=== PATIENT | female | born 1980 | race Caucasian/White ===

== ENCOUNTER 2017-05-22 12:25 | Outpatient (CLI) | payer BC ==
[~2017-05-22] VITALS: Ht 157.5 cm; Wt 68.1 kg
[2017-05-22 13:29] LABS: ADD UMIC YES; UR ASCORBIC ACID 20 mg/dL (NEGATIVE); UR BILIRUBIN (Dip) NEGATIVE (NEGATIVE); UR BLOOD (Dip) NEGATIVE (NEGATIVE); UR CLARITY SLIGHTLY CLOUDY (CLEAR); UR COLOR YELLOW (YELLOW); UR GLUCOSE (Dip) NEGATIVE (NEGATIVE); UR KETONES (Dip) NEGATIVE (NEGATIVE); UR LEUKOCYTE ESTERASE (Dip) 2+ Leu/ul (NEGATIVE); UR MUCUS FEW /HPF (NONE SEEN); UR NITRITE (Dip) NEGATIVE (NEGATIVE); UR RBC 1 /HPF (0-5); UR SPECIFIC GRAVITY (Dip) 1.023 (1.003-1.030); UR SQUAMOUS EPITHELIAL CELL FEW /HPF (FEW); UR TOTAL PROTEIN (Dip) NEGATIVE (NEGATIVE); UR UROBILINOGEN (Dip) NEGATIVE (NEGATIVE)
[2017-05-22] MEDS ORDERED: PRENAT PO (13:31)
[2017-05-22 13:32] VITALS: Ht 157.5 cm; Wt 68.1 kg
[2017-05-22 13:33] VITALS: BP 101/56; PULSE 86
[2017-05-22 13:37] LABS: ADD SCAN DIFF NO
[2017-05-22 13:40] LABS: BASOPHILS % 0.1 % (0.0-2.0); EOSINOPHILS # 0.1 10^3/ul (0.0-0.5); EOSINOPHILS % 1.1 % (0.0-7.0); HEMATOCRIT 30.6 % (37.0-47.0); HEMOGLOBIN 10.4 g/dl (12.0-16.0); LYMPHOCYTES # 1.4 10^3/ul (0.8-2.9); LYMPHOCYTES % 18.1 % (15.0-51.0); MEAN CORPUSCULAR HEMOGLOBIN 29.7 pg (29.0-33.0); MEAN CORPUSCULAR VOLUME 87.4 fl (82.0-101.0); MEAN PLATELET VOLUME 10.5 fl (7.4-10.4); MONOCYTE # 0.5 10^3/ul (0.3-0.9); MONOCYTES % 6.9 % (0.0-11.0); NEUTROPHIL # 5.8 10^3/ul (1.6-7.5); NEUTROPHILS % 73.2 % (39.0-77.0); PLATELET COUNT 201 10^3/UL (140-415); RED CELL DISTRIBUTION WIDTH 13.4 % (11.5-14.5); WHITE BLOOD COUNT 7.9 10^3/ul (4.8-10.8)
--- NOTE | 2017-05-22 13:44 | RADRPT ---
PROCEDURE: US OB. CLINICAL INDICATION: Low AZAEL TECHNIQUE: Transabdominal views of the pelvis are available for review. COMPARISON: None. FINDINGS: There is a single intrauterine gestation in a transverse presentation to maternal right. The heart rate is present at 129 bpm. The placenta is posterior. There is no evidence of placenta previa or a placental abruption. The AZAEL measures 13.3 cm. RPTAT: AA IMPRESSION: Normal AZAEL. Physician Danielle Date Time Electronically viewed and signed by Physician Danielle on 05/22/2017 13:44 RA/
--- NOTE | 2017-05-22 23:56 | PN ---
Triage Information Date/Time 05/22/2017 Weeks of Gestation 26 wks and 1 day : 4 Para: 2 Diabetes: none Hypertention: none Additional information 36 years old with IUP at 26 weeks and [address] days [address] care [address] Dr[address] Goodman was sent to triage for R/o SROM. Denies any contractions or vaginal bleeding or decreased movement. Denies any complication during her course. Objective Vital Signs Date Time Temp Pulse Resp B/P Pulse Ox O2 Delivery O2 Flow Rate FiO2 05/22/17 13:33 98.9 86 101/56 Exam GA: A&O, NAD Abdomen: soft , gravid , fundal Height consistent with GA. NST: appropriate for GA No contractions on the monitor AZAEL: 13.3 ROM test : Negative SSE: No pooling seen Hematology - 72 Hrs Test 05/22/17 13:10 White Blood Count 7.910^3/ul (4.8-10.8) Red Blood Count 3.5010^6/ul (4.20-5.40) L Hemoglobin 10.4g/dl (12.0-16.0) L Hematocrit 30.6% (37.0-47.0) L Mean Corpuscular Volume 87.4fl (82.0-101.0) Mean Corpuscular Hemoglobin 29.7pg (29.0-33.0) Mean Corpuscular Hemoglobin Concent 34.0g/dl (32.0-37.0) Red Cell Distribution Width 13.4% (11.5-14.5) Platelet Count 69589^3/UL (140-415) Mean Platelet Volume 10.5fl (7.4-10.4) H Neutrophils % 73.2% (39.0-77.0) Lymphocytes % 18.1% (15.0-51.0) Monocytes % 6.9% (0.0-11.0) Eosinophils % 1.1% (0.0-7.0) Basophils % 0.1% (0.0-2.0) Nucleated Red Blood Cells % 0.0/100WBC (0.0-0.0) Neutrophils # 5.810^3/ul (1.6-7.5) Lymphocytes # 1.410^3/ul (0.8-2.9) Monocytes # 0.510^3/ul (0.3-0.9) Eosinophils # 0.110^3/ul (0.0-0.5) Basophils # 0.010^3/ul (0.0-0.1) Nucleated Red Blood Cells # 0.010^3/ul (0.0-0.0) Results/Medications Result Diagram: 05/22/17 1310 Results 24 hrs Laboratory Tests Test 05/22/17 13:05 05/22/17 13:10 Urine Color YELLOW Urine Clarity SLIGHTLY CLOUDY A Urine pH 5.0 Urine Specific [place] 1.023 Urine Ketones NEGATIVE Urine Nitrite NEGATIVE Urine Bilirubin NEGATIVE Urine Urobilinogen NEGATIVE Urine Leukocyte Esterase 2+ H Urine Microscopic RBC 1 Urine Microscopic WBC 4 Urine Squamous Epithelial Cells FEW Urine Mucus FEW A Urine Hemoglobin NEGATIVE Urine Glucose NEGATIVE Urine Total Protein NEGATIVE White Blood Count 7.9 Red Blood Count 3.50 L Hemoglobin 10.4 L Hematocrit 30.6 L Mean Corpuscular Volume 87.4 Mean Corpuscular Hemoglobin 29.7 Mean Corpuscular Hemoglobin Concent 34.0 Red Cell Distribution Width 13.4 Platelet Count 201 Mean Platelet Volume 10.5 H Neutrophils % 73.2 Lymphocytes % 18.1 Monocytes % 6.9 Eosinophils % 1.1 Basophils % 0.1 Nucleated Red Blood Cells % 0.0 Neutrophils # 5.8 Lymphocytes # 1.4 Monocytes # 0.5 Eosinophils # 0.1 Basophils # 0.0 Nucleated Red Blood Cells # 0.0 Membranes Rupture NEGATIVE Imaging Results PROCEDURE: US OB. CLINICAL INDICATION: Low AZAEL TECHNIQUE: Transabdominal views of the pelvis are available for review. COMPARISON: None. FINDINGS: There is a single intrauterine gestation in a transverse presentation to maternal right. The heart rate is present at 129 bpm. The placenta is posterior. There is no evidence of placenta previa or a placental abruption. The AZAEL measures 13.3 cm. RPTAT: AA IMPRESSION: Normal AZAEL. Assessment/Plan IUP at 26 weeks and 1 day No evidence of PPROM No evidence of PTL DC home Follow up in 1-2 days with OB office RT Triage if LOF, vaginal bleeding, decreased movement or any other concerns SUSAN JUSTICE MD May 22, 2017 23:56
== END 2017-05-22 15:05 | disposition home or self-care (01) ==
LOC: OBT 12:25 → L-D 12:27 → OBT 15:05
PROVIDERS: ATTEND Obstetrics & Gynecology
DX: O41.8X20 Other specified disorders of amniotic fluid and membranes, second trimester, not applicable or unspecified (principal); O26.892 Other specified pregnancy related conditions, second trimester; M54.9 Dorsalgia, unspecified; Z3A.26 26 weeks gestation of pregnancy
CPT/HCPCS: 36415; 76815; 81001; 84112; 85025; 87086; Z7500; G0463